=== PATIENT | female | born 2000 | race Caucasian/White ===

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

== ENCOUNTER 2020-07-23 11:06 | Inpatient (IN) | payer OTHER ==
[~2020-07-23 11:06] MED LIST changes: +KEFLEX500 MG PO; +ONDANSETRON ODT8 MG PO; +PERCOCET 5-3251 EACH PO
--- NOTE | 2020-07-23 13:33 | PR ---
[facility] [place] [facility] [address] [facility] [place], [place] [address] Signed Progress Notes IP Datetime Report Generated by CPN: 07/23/2020 13:33 PROGRESS NOTES: [id number] Impression: Normal Progression of Labor Procedures: Artificial ROM Plan: Continue Present Management; Anticipate Vaginal Delivery VITAL SIGNS: [id number] Vital Signs: Reviewed; Within Normal Limits EXAM: [id number] Dilatation: 6.0 Effacement: 95 Station: -1 Contractions: every 2-3 minutes MEMBRANES: [id number] Membranes Status: Ruptured Comments: Confortable with Epidural. Moved left side to right side with resolution of variable decels. Will continue close monitoring. FETUS A: [id number] FHR Baseline: 110 Variability: Moderate 6-25bpm Accelerations: 15X15 Presentation: Vertex FETUS B: [id number] Signing Physician: Wendy Helton MD Copies: ~ *Electronically Signed* 07/23/20 1333 WENDY HELTON MD PATIENT NAME: RICK GALVAN PROGRESS NOTE DATE OF : 00 PHYSICIAN: WENDY HELTON MD RPT #: [id number] REPORT IS CONFIDENTIAL AND NOT TO BE RELEASED WITHOUT AUTHORIZATION
--- NOTE | 2020-07-23 13:48 | NUR ---
SWABBED BOTH NARES FOR RAPID COVID TEST
--- NOTE | 2020-07-23 17:51 | PR ---
[facility] [address] [facility] [place], [place] [address] Signed PP Progress Notes Datetime Report Generated by CPN: 07/23/2020 17:51 SUBJECTIVE: [id number] Pain: Within Normal Limits Nausea/Vomiting: Denies Vital Signs: [id number] Vital Signs: Reviewed; Within Normal Limits Abdomen/Uterus: Normal Lochia: Abnormal Extremities: Normal IMPRESSION/PLAN/PROCEDURES: [id number] Other Impression: PP Hemorrhage - mild Procedures: None Progress Notes: Uterine massage. Add 40 units Piitocin IV to next Liter fluid Cytotec Vaginal Suppository Continue monitoring EBL Signing Physician: Wendy Helton MD Copies: ~ *Electronically Signed* 07/23/20 1754 WENDY HELTON MD PATIENT NAME: RICK GALVAN PROGRESS NOTE DATE OF : 00 PHYSICIAN: WENDY HELTON MD RPT #: [id number] REPORT IS CONFIDENTIAL AND NOT TO BE RELEASED WITHOUT AUTHORIZATION
[2020-07-23] MEDS ORDERED: PRENATAL VITAM1 EACH PO (23:22)
[2020-07-23] MEDS ORDERED: IRON325 M1 PO (23:23)
[2020-07-24] MEDS ORDERED: VALTREX500 MG PO (06:58)
[2020-07-24] MEDS ORDERED: TYLENOL EXTRA500 MG PO (07:06)
[2020-07-24] MEDS ORDERED: ZOFRAN4 MG PO (07:06)
--- NOTE | 2020-07-24 12:16 | PR ---
[facility] [address] [facility] [place] [address] Signed PP Progress Notes Datetime Report Generated by CPN: 07/24/2020 12:16 SUBJECTIVE: [id number] Pain: Within Normal Limits Nausea/Vomiting: Present Vital Signs: [id number] Vital Signs: Reviewed; Within Normal Limits Notable Details: PP Hgb/Hct = 10.4/31.7 EXAM: Ongoing Abdomen/Uterus: Normal Lochia: Normal Extremities: Normal IMPRESSION/PLAN/PROCEDURES: [id number] Impression: Normal Progression Other Impression: PP Hemorrhage - mild Plan: Continue Present Management Procedures: None Progress Notes: Doing well, without complailnt, bleeding slowing. Signing Physician: Wendy Helton MD Copies: ~ *Electronically Signed* 07/24/20 1216 WENDY HELTON MD PATIENT NAME: RICK GALVAN PROGRESS NOTE DATE OF : 00 PHYSICIAN: WENDY HELTON MD RPT #: [id number] REPORT IS CONFIDENTIAL AND NOT TO BE RELEASED WITHOUT AUTHORIZATION
--- NOTE | 2020-07-25 09:54 | PR ---
[facility] [address] [place] [address] Signed PP Progress Notes Datetime Report Generated by CPN: 07/25/2020 09:54 SUBJECTIVE: [id number] Pain: Within Normal Limits Nausea/Vomiting: Denies Vital Signs: [id number] Vital Signs: Reviewed; Within Normal Limits Notable Details: PP Hgb/Hct = 10.4/31.7 EXAM: Ongoing Abdomen/Uterus: Normal Lochia: Normal Extremities: Normal IMPRESSION/PLAN/PROCEDURES: [id number] Impression: Normal Progression Other Impression: PP Hemorrhage - mild Plan: Discharge Procedures: None Progress Notes: Doing well, without complaints, ready to go home. Signing Physician: Wendy Helton MD Copies: ~ *Electronically Signed* 07/25/20 0954 WENDY HELTON MD PATIENT NAME: RICK GALVAN PROGRESS NOTE DATE OF : 00 PHYSICIAN: WENDY HELTON MD RPT #: [id number] REPORT IS CONFIDENTIAL AND NOT TO BE RELEASED WITHOUT AUTHORIZATION
== END 2020-07-25 15:15 | disposition home or self-care (01) | DRG 807 ==
LOC: FBCO 11:06 → FBC 11:35 → MS 07-24 09:10 → FBC 07-24 09:10 → FBCO 09-04 14:18
PROVIDERS: ADMIT General Practice; ATTEND General Practice
PROC: 10E0XZZ Delivery of Products of Conception, External Approach (ICD-10-PCS; principal; 2020-07-23)
PROC: 0KQM0ZZ Repair Perineum Muscle, Open Approach (ICD-10-PCS; 2020-07-23)
PROC: 10907ZC Drainage of Amniotic Fluid, Therapeutic from Products of Conception, Via Natural or Artificial Opening (ICD-10-PCS; 2020-07-23)
PROC: 00HU33Z Insertion of Infusion Device into Spinal Canal, Percutaneous Approach (ICD-10-PCS; 2020-07-23)
PROC: 3E0R3BZ Introduction of Anesthetic Agent into Spinal Canal, Percutaneous Approach (ICD-10-PCS; 2020-07-23)
DX: O99.334 Smoking (tobacco) complicating childbirth (principal); Z37.0 Single live birth; F17.290 Nicotine dependence, other tobacco product, uncomplicated; Z3A.40 40 weeks gestation of pregnancy; O99.324 Drug use complicating childbirth; F12.90 Cannabis use, unspecified, uncomplicated; Z20.822 Contact with and (suspected) exposure to COVID-19; O76 Abnormality in fetal heart rate and rhythm complicating labor and delivery; O77.0 Labor and delivery complicated by meconium in amniotic fluid; O72.1 Other immediate postpartum hemorrhage; O99.02 Anemia complicating childbirth; D64.9 Anemia, unspecified; O70.1 Second degree perineal laceration during delivery; Z79.899 Other long term (current) drug therapy
CPT/HCPCS: 01960; 36415; 85027; A9270; C9803; J2590; J2795; J3010; J7121; U0003

== ENCOUNTER 2023-04-19 15:41 | Emergency (ER) | payer OTHER ==
[~2023-04-19] VITALS: Ht 152.4 cm; Wt 71.4 kg
[~2023-04-19 15:41] MED LIST changes: +CEFPODOXIME PR200 MG PO; +HYDROCODON-ACE1 EA10 PO; +IRON325 M1 PO; +PRENATAL VITAM1 EACH PO; +TYLENOL EXTRA500 MG PO; +VALTREX500 MG PO
[2023-04-19 16:01] LABS: BASOPHILS 0.3 % (0-2); EOSINOPHILS 0.4 % (0-6); HEMATOCRIT 41.4 % (35.0-50.0); HEMOGLOBIN 14.1 g/dL (12.0-18.0); LYMPHOCYTES 13.6 % (24-44); MCH 30.8 (27-36); MCV 90.7 fl (81-99); MONOCYTES 4.9 % (0-12); NEUTROPHILS 80.8 % (39-80); PLATELET COUNT 344 K/uL (140-440); RBC 4.57 M/ul (4.3-5.7)
[2023-04-19 16:12] LABS: ALBUMIN 4.6 g/dL (3.4-5.0); ALBUMIN/GLOBULIN RATIO 1.35 (1.1-2.4); ALCOHOL, MEDICAL <3 ng/dL (<3); ALKALINE PHOSPHATASE 78 U/L (46-116); ALT (SGPT) 21 U/L (14-59); ANION GAP 15.8 (7-21); AST (SGOT) 20 U/L (15-37); BILIRUBIN, TOTAL 1.7 ng/dL (0.2-1.0); BUN/CREATININE RATIO 12.94 (6.0-28.6); CALCIUM 9.3 mg/dL (8.5-10.1); CARBON DIOXIDE 24 mmol/L (21-32); CHLORIDE 101 mmol/L (98-107); CREATININE, SERUM 0.85 mg/dL (0.55-1.02); GLOMERULAR FILTRATION RATE,EST 99 mL/min (>60); MAGNESIUM 1.8 mg/dL (1.8-2.4); POTASSIUM 3.8 mmol/L (3.5-5.1); UREA NITROGEN 11 mg/dL (7-18)
[2023-04-19 17:57] LABS: BILIRUBIN, URINE NEGATIVE (negative); BLOOD/HGB, URINE NEGATIVE (Negative); KETONE, URINE SMALL (Negative); LEUK ESTERASE, URINE NEGATIVE (negative); NITRITE, URINE NEGATIVE (negative); PH, URINE 5.5 (5-7)
[2023-04-19 18:13] LABS: AMPHETAMINES, URINE NEGATIVE (NEGATIVE); BARBITURATES, URINE NEGATIVE (NEGATIVE); BENZODIAZEPINE, URINE NEGATIVE (NEGATIVE); BUPRENORPHINE, URINE NEGATIVE (NEGATIVE); CANNABINOID, URINE POSITIVE (NEGATIVE); COCAINE, URINE NEGATIVE (NEGATIVE); ECSTASY, URINE NEGATIVE (NEGATIVE); FENTANYL, URINE NEGATIVE (NEGATIVE); METHADONE, URINE NEGATIVE (NEGATIVE); OPIATES, URINE NEGATIVE (NEGATIVE); OXYCODONE, URINE NEGATIVE (NEGATIVE); PHENCYCLIDINE, URINE NEGATIVE (NEGATIVE)
[2023-04-19 18:35] LABS: PREGNANCY TEST, URINE NEGATIVE (NEG)
[2023-04-19 18:38] VITALS: BP 122/63
== END 2023-04-19 18:38 | disposition home or self-care (01) ==
LOC: ED 15:41
PROVIDERS: Emergency Medicine
DX: R56.9 Unspecified convulsions (principal); F17.200 Nicotine dependence, unspecified, uncomplicated; Z88.8 Allergy status to other drugs, medicaments and biological substances
CPT/HCPCS: 36415; 70450; 80053; 80307; 81003; 83735; 84703; 85025; 99285-25; G0480